=== PATIENT | female | born 1990 | race Caucasian/White ===

== ENCOUNTER 2016-11-24 20:52 | Emergency (ER) | payer BC ==
[2016-11-24 23:36] LABS: ABSOLUTE BASOPHILS # (AUTO) 0.1 10^3/uL (0.0-0.2); ABSOLUTE EOSINOPHILS # (AUTO) 0.1 10^3/uL (0.0-0.6); ABSOLUTE LYMPHOCYTES (AUTO) 3.6 10^3/uL (0.5-4.7); ABSOLUTE MONOCYTES (AUTO) 0.8 10^3/uL (0.1-1.4); ABSOLUTE NEUT (AUTO) 8.5 10^3/uL (1.7-8.2); BASOPHILS % (AUTO) 0.7 % (0-2); EOSINOPHILS % (AUTO) 0.9 % (0-6); HEMATOCRIT 42.9 % (36.0-47.0); HGB HCT DIFFERENCE -0.9; LYMPHOCYTES % (AUTO) 27.3 % (13-45); MEAN CORPUSCULAR HEMOGLOBIN 29.5 pg (27.0-33.4); MEAN CORPUSCULAR HGB CONC 32.6 g/dL (32.0-36.0); MEAN CORPUSCULAR VOLUME 91 fl (80-97); MONOCYTES % (AUTO) 5.9 % (3-13); RED BLOOD COUNT 4.73 10^6/uL (3.72-5.28); RED CELL DISTRIBUTION WIDTH 14.6 % (11.5-14.0); SEGMENTED NEUTROPHILS % (AUTO) 65.2 % (42-78); WHITE BLOOD COUNT 13.1 10^3/uL (4.0-10.5)
[2016-11-24] MEDS ORDERED: MECLIZINE HCL 25 MG TABLET PO ONE (23:39)
[2016-11-24 23:42] LABS: APPEARANCE,URINE CLEAR; BILIRUBIN,URINE NEGATIVE (NEGATIVE); GLUCOSE, URINE NEGATIVE (NEGATIVE); KETONES,URINE NEGATIVE (NEGATIVE); LEUKOCYTE ESTERASE,URINE NEGATIVE (NEGATIVE); NITRITE,URINE NEGATIVE (NEGATIVE); PROTEIN,URINE NEGATIVE (NEGATIVE); URINE SPECIFIC GRAVITY 1.031; UROBILINOGEN,URINE NEGATIVE mg/dL (<2.0)
[2016-11-24 23:49] LABS: ALANINE AMINOTRANSFERASE 35 U/L (9-52); ALKALINE PHOSPHATASE 95 U/L (38-126); ANION GAP 13 (5-19); ASPARTATE AMINO TRANSFERASE 25 U/L (14-36); BILIRUBIN,DIRECT 0.2 mg/dL (0.0-0.4); BILIRUBIN,TOTAL 0.4 mg/dL (0.2-1.3); BLOOD UREA NITROGEN 17 mg/dL (7-20); CALCIUM 9.4 mg/dL (8.4-10.2); CARBON DIOXIDE 26 mmol/L (22-30); CHLORIDE 102 mmol/L (98-107); CREATININE RESULT 0.62 mg/dL (0.52-1.25); GLUCOSE 101 mg/dL (75-110); POTASSIUM 4.4 mmol/L (3.6-5.0)
[2016-11-24] MEDS ORDERED: KETOROLAC TROMETHAMINE INJ/PF 30 MG/1 ML SDV IV ONE (23:54)
[2016-11-24] MEDS ORDERED: DIPHENHYDRAMINE HCL 50 MG/ML VIAL IV ONE (23:54)
[2016-11-24] MEDS ORDERED: PROCHLORPERAZINE EDISYLATE INJ 10 MG/2 ML VIAL IV ONE (23:54)
[2016-11-24] MEDS ORDERED: NORMAL SALINE 1000 ML 1,000 ML IV ONE (23:55)
--- NOTE | 2016-11-24 23:56 | ER Document Report ---
ED General - General Chief Complaint: Nausea Stated Complaint: NAUSEA Notes: Patient is a 26-year-old female who presents with concerns of a bitemporal headache with associated vertigo. States that her symptoms started gradually and worsened over the course of approximately one hour until they reach maximal intensity. Does describe a constant, dull, throbbing pain in her bitemporal scalp. Nothing improves or worsens her pain. She has not done anything to try to treat her symptoms. She was seen in urgent care and referred to the emergency department. She notes that the vertigo is worsened when she goes from a sitting to standing position. Denies positional changes worsen the vertigo. She has had associated nausea without vomiting. No focal weakness, numbness, fever, or altered mental status. She denies any history of similar symptoms in the past. No history of DVT, pulmonary embolus, venous sinus thrombosis, or estrogen use in the past. TRAVEL OUTSIDE OF THE [place] IN LAST 30 DAYS: No - Related Data Allergies/Adverse Reactions: Latex, Natural Rubber Adverse Reaction (Verified 11/24/16 21:02) Past Medical History - General Information source: Patient - Social History Smoking Status: Never Smoker Frequency of alcohol use: None Drug Abuse: None Lives with: Spouse/Significant other Family History: Reviewed & Not Pertinent Patient has suicidal ideation: No Patient has homicidal ideation: No Renal/ Medical History: Denies: Hx Peritoneal Dialysis Review of Systems - Review of Systems Notes: Constitutional: Negative for fever. HENT: Negative for sore throat. Eyes: Negative for visual changes. Cardiovascular: Negative for chest pain. Respiratory: Negative for shortness of breath. Gastrointestinal: Negative for abdominal pain, vomiting or diarrhea. Genitourinary: Negative for dysuria. Musculoskeletal: Negative for back pain. Skin: Negative for rash. Neurological: Positive for headaches, negative for weakness or numbness. 10 point ROS negative except as marked above and in HPI. Physical Exam - Vital signs Vitals: Temp Pulse Resp BP Pulse Ox 98.2 F 95 20 126/74 H 100 11/24/16 21:03 11/24/16 21:03 11/24/16 21:03 11/24/16 21:03 11/24/16 21:03 Interpretation: Normal Notes: PHYSICAL EXAMINATION: GENERAL: Well-appearing, well-nourished and in no acute distress. HEAD: Atraumatic, normocephalic. EYES: Pupils equal round and reactive to light, extraocular movements intact, sclera anicteric, conjunctiva are normal. ENT: nares patent, oropharynx clear without exudates. Moist mucous membranes. NECK: Normal range of motion, supple without lymphadenopathy LUNGS: Breath sounds clear to auscultation bilaterally and equal. No wheezes rales or rhonchi. HEART: Regular rate and rhythm without murmurs ABDOMEN: Soft, nontender, normoactive bowel sounds. No guarding, no rebound. No masses appreciated. EXTREMITIES: Normal range of motion, no pitting or edema. No cyanosis. NEUROLOGICAL: Face symmetric. Tongue protrudes midline. Extraocular motions intact. Pupils are 2 mm and equally reactive. Normal speech, normal gait. 5 out of 5 strength in both the distal and proximal upper and lower extremities bilaterally. Sensation is grossly intact throughout. Finger to nose testing normal. Pronator drift normal. PSYCH: Normal mood, normal affect. SKIN: Warm, Dry, normal turgor, no rashes or lesions noted. Course - Re-evaluation Re-evalutation: 11/24/16 23:55 Presentation of a headache that appears to be most consistent with tension versus migrainous type headache with associated vertigo. Headache was not maximal in onset, patient has no focal neurologic deficits, no nuchal rigidity, vital signs within normal limits, no papilledema, and patient is overall well in appearance. Based on clinical history and examination I do not suspect an acute subarachnoid hemorrhage, dural venous sinus thrombosis, acute meningitis, or intercranial mass. Given my low clinical suspicion for any acute life- threatening etiology, I do not feel advanced neuro imaging testing is indicated at this time. Regarding patient's vertigo: This appears most consistent with a benign peripheral vertigo and may be secondary to her headache or may actually be the cause of headache itself. Patient has no abnormal findings on exam. Normal cerebellar testing, steady even gait. Able to walk on heels and toes. Normal proprioception. Patient is not an elevated risk for a cerebellar infarction given age, absence of significant risk factors. No use of estrogen. Will symptomatically treat and reassess. 11/25/16 01:20 Patient has had complete resolution of all her symptoms at this time. Neurologic exam remains unremarkable.At this time will discharge with return precautions and follow-up recommendations. Verbal discharge instructions given a the bedside and opportunity for questions given. Medication warnings reviewed. Patient is in agreement with this plan and has verbalized understanding of return precautions and the need for primary care follow-up in the next 24-72 hours. - Vital Signs Vital signs: Temp Pulse Resp BP Pulse Ox 97.5 F 83 16 114/54 L 98 11/25/16 01:37 11/25/16 01:37 11/25/16 01:37 11/25/16 01:37 11/25/16 01:37 - Laboratory Result Diagrams: 11/24/16 23:00 11/24/16 23:00 Laboratory results interpreted by me: 11/24/16 23:00 WBC 13.1 H RDW 14.6 H Absolute Neutrophils 8.5 H Discharge - Discharge Clinical Impression: Vertigo Headache Qualifiers: Headache type: unspecified Headache chronicity pattern: acute headache Intractability: not intractable Qualified Code(s): R51 - Headache Condition: Good Disposition: HOME, SELF-CARE Additional Instructions: You have been seen in the Emergency Department (ED) for a headache. Please use Tylenol (acetaminophen) or Motrin (ibuprofen) as needed for symptoms, but only as written on the box. As we have discussed, please follow up with your primary care doctor as soon as possible regarding today's ED visit and your headache symptoms. Call your doctor or return to the ED if you have a worsening headache, sudden and severe headache, confusion, slurred speech, facial droop, weakness or numbness in any arm or leg, extreme fatigue, or other symptoms that concern you.
--- NOTE | 2016-11-25 00:09 | EKG REPORT ---
SEVERITY:- NORMAL ECG - SINUS RHYTHM : Confirmed by: Jd Lora MD 25-Nov-2016 00:08:23
[2016-11-25 01:41] VITALS: BP 114/54
== END 2016-11-25 01:47 | disposition home or self-care (01) ==
LOC: ER 20:52
DX: R42 Dizziness and giddiness (principal); R51 Headache; R11.0 Nausea; Z91.040 Latex allergy status
CPT/HCPCS: 93005; 99284; 96361; 96374; 96375; 36415; 85025; 81025; 80053; 81001; 93010; J1200; J1885; J0780; J7030

== ENCOUNTER 2020-08-10 12:35 | Emergency (ER) | payer BC, OTHER ==
[2020-08-10 12:55] VITALS: BP 154/86
[2020-08-10] MEDS ORDERED: METOCLOPRAMIDE HCL INJ/PF 10 MG/2 ML SDV IV ONE ×2 (13:53→18:30)
[2020-08-10] MEDS ORDERED: DIPHENHYDRAMINE HCL 50 MG/ML VIAL IV ONE ×2 (13:53→18:30)
[2020-08-10] MEDS ORDERED: KETOROLAC TROMETHAMINE INJ/PF 30 MG/1 ML SDV IV ONE ×3 (13:53→18:30)
[2020-08-10] MEDS ORDERED: RINGERS SOLUTION,LACTATED 1,000 ML IV ONE (13:53)
--- NOTE | 2020-08-10 13:54 | ER Document Report ---
ED Medical Screen (RME) - General Chief Complaint: Headache Stated Complaint: HEADACHE Time Seen by Provider: 08/10/20 13:49 Mode of Arrival: Ambulatory Information source: Patient Notes: HPI; 29-year old female presents to the emergency room complaining of a headache for the past 2 days. States she has a history of tension headaches this is similar occipital and more intense. States she is been taking ibuprofen which usually alleviates her headaches without relief. Some nausea but no vomiting. States the headache is located to the back of her head. Denies any head trauma head injury. Denies any sudden thunderclap. Denies worst headache of her life. Denies . Mild photophobia PE: Alert and oriented x3. PERRLA, EOMI lungs: Clear to auscultation without rales, rhonchi, wheezes. Heart: Regular rate rhythm without murmurs, rubs, gallops. I have greeted and performed a rapid initial assessment of this patient. A comprehensive ED assessment and evaluation of the patient, analysis of test results and completion of the medical decision making process will be conducted by additional ED providers. I have specifically instructed the patient or family members with the patient to immediately return to any nursing staff should anything change in the patient's condition or with their chief complaint. TRAVEL OUTSIDE OF THE [place] IN LAST 30 DAYS: No - Related Data Allergies/Adverse Reactions: Latex, Natural Rubber Adverse Reaction (Verified 11/24/16 21:02) Past Medical History Renal/ Medical History: Denies: Hx Peritoneal Dialysis Psychiatric Medical History: Reports: Hx Bipolar Disorder Physical Exam - Vital signs Vitals: Temp Pulse Resp BP Pulse Ox 98.3 F 85 16 154/86 H 98 08/10/20 12:51 08/10/20 12:51 08/10/20 12:51 08/10/20 12:51 08/10/20 12:51 Course - Vital Signs Vital signs: Temp Pulse Resp BP Pulse Ox 98.3 F 85 16 154/86 H 98 08/10/20 12:51 08/10/20 12:51 08/10/20 12:51 08/10/20 12:51 08/10/20 12:51
--- NOTE | 2020-08-10 18:10 | ER Document Report ---
ED General - General Chief Complaint: Headache Stated Complaint: HEADACHE Time Seen by Provider: 08/10/20 13:49 Mode of Arrival: Ambulatory TRAVEL OUTSIDE OF THE [place] IN LAST 30 DAYS: No - HPI Notes: 29-year-old female presents with a headache. Patient states she has a history of migraine headaches, then states that they are tension headaches. She has had a headache for the past 2 days. States that headache developed on Sunday, has been present since. Is not the worst headache of her life. It was not maximal at onset. States that she typically takes ibuprofen which helps, has however had no relief with it. She states that she last experienced a bad headache about 1 month ago. She is not on any long-term controlling medications for headaches. States that the headache is in a headband-like distribution, and also more intense in the back of her head. She denies nausea, vomiting or diarrhea. She mainly complains currently that the IV in her arm is painful. S he denies current and has not recently given . - Related Data Allergies/Adverse Reactions: Latex, Natural Rubber Adverse Reaction (Verified 08/10/20 17:44) Past Medical History - General Information source: Patient - Social History Smoking Status: Unknown if Ever Smoked Family History: Reviewed & Not Pertinent Patient has homicidal ideation: No Renal/ Medical History: Denies: Hx Peritoneal Dialysis Psychiatric Medical History: Reports: Hx Bipolar Disorder Review of Systems - Review of Systems Constitutional: denies: Fever EENT: Blurred vision Cardiovascular: denies: Chest pain Respiratory: denies: Short of breath Gastrointestinal: denies: Abdominal pain, Diarrhea, Nausea, Vomiting Genitourinary: No symptoms reported Female Genitourinary: No symptoms reported Musculoskeletal: No symptoms reported Skin: No symptoms reported Hematologic/Lymphatic: No symptoms reported Neurological/Psychological: Headaches. denies: Weakness Physical Exam - Vital signs Vitals: Temp Pulse Resp BP Pulse Ox 98.3 F 85 16 154/86 H 98 08/10/20 12:51 08/10/20 12:51 08/10/20 12:51 08/10/20 12:51 08/10/20 12:51 - General General appearance: Appears well, Alert In distress: None - HEENT Head: Normocephalic, Atraumatic Extraocular movements intact: Yes Pupils: PERRL Neck: Supple - Respiratory Breath sounds: Normal - Cardiovascular Rhythm: Regular Heart sounds: Normal auscultation - Abdominal Inspection: Obese Tenderness: Nontender - Extremities General upper extremity: Normal ROM General lower extremity: Normal ROM. No: Edema - Neurological Neuro grossly intact: Yes Cognition: Normal Orientation: AAOx4 Speech: Normal Cranial nerves: Normal Motor strength normal: LUE, RUE, LLE, RLE Sensory: Normal - Psychological Associated symptoms: Normal affect - Skin Skin Temperature: Warm Course - Re-evaluation Re-evalutation: 29-year-old female presents with headaches x2 days, describes as a typical headache for her. On exam she is alert and well-appearing, afebrile and hemodynamically stable. She has no gross focal neuro deficits. No signs consistent with meningismus. Suspect typical tension versus migraine headache. Have ordered Toradol for symptomatic control. Would have a low suspicion for serious intracranial pathology at this time given her reassuring exam, presentation and vitals. 08/10/20 20:22 Patient reports that her headache had completely resolved, though she started to feel little bit, back. She states overall she feels comfortable going home at this time. Remains neurologically intact. Will prescribe prescription for Toradol as she has had success with this. Return precautions given, stable time discharge. - Vital Signs Vital signs: Temp Pulse Resp BP Pulse Ox 98.3 F 85 16 154/86 H 98 08/10/20 12:51 08/10/20 12:51 08/10/20 12:51 08/10/20 12:51 08/10/20 12:51 - Laboratory Results Critical Laboratory Results Reviewed: No Critical Results - Radiology Results Critical Radiology Results Reviewed: No Critical Results Discharge - Discharge Clinical Impression: Headache Qualifiers: Headache type: tension-type Headache chronicity pattern: episodic headache Intractability: not intractable Qualified Code(s): G44.219 - Episodic tension- type headache, not intractable Disposition: HOME, SELF-CARE Additional Instructions: You may continue use of Toradol for headache control, do not use this with other NSAIDs. Be sure to drink plenty of fluids. Return to the emergency department for any concerning worsening symptoms. Prescriptions: Ketorolac Tromethamine [Toradol 10 mg Tablet] 10 mg PO Q6HP PRN #30 tablet PRN Reason:
== END 2020-08-10 20:54 | disposition home or self-care (01) ==
LOC: ER 12:35
DX: G44.219 Episodic tension-type headache, not intractable (principal); H53.8 Other visual disturbances; Z91.040 Latex allergy status
CPT/HCPCS: 99284; 96374; J1885